=== PATIENT | female | born 1970 | race Caucasian/White ===

== ENCOUNTER → 2018-02-25 08:49 | Outpatient (CLI) | payer MEDICAID ==
[~2018-02-25] VITALS: Ht 165.1 cm; Wt 84.1 kg
--- NOTE | ~2018-02-25 | OP ---
PATIENT NAME: BRIE ZULUAGA MEDICAL RECORD: [id number] :70 LOCATION:D.CAT ADMISSION DATE: SURGEON: JAY JAY FERNANDEZ MD DATE OF OPERATION: 02/25/2018 DATE OF SERVICE: 02/25/2018 PROCEDURES: 1. PTCA stent RCA. 2. Left heart catheterization. 3. Selective coronary angiography. 4. Left ventriculogram. INDICATION: Angina and coronary artery disease. PROCEDURE IN DETAIL: After informed consent was obtained and after a detailed description of the risks, benefits as well as alternative therapies, the patient elected to proceed with angiogram and angioplasty. The right radial area was prepped and draped in normal sterile fashion. Right radial artery was cannulated via modified Seldinger technique with placement of 6-Nigerien sheath. All catheters exchanged through this sheath. FINDINGS: The left ventriculogram was performed in standard 30-degree BERG view, reveals good cardiac wall motion throughout all segments. Overall ejection fraction estimated 60%. SELECTIVE CORONARY ANGIOGRAPHY: 1. Left main showed no significant angiographic disease. 2. Left anterior descending has moderate irregularities, but no flow-limiting stenosis. 3. The left circumflex has moderate irregularities, but no flow-limiting stenosis. 4. The right coronary has previously placed stent in the proximal vessel. This is widely patent; however, there is greater than 80% stenosis with pressure damping at the ostium. PTCA STENT OF THE OSTIAL RCA: The ostium was addressed with a 4.0 x 12 mm [place]. Result was 0% residual stenosis. OVERALL IMPRESSION: Successful percutaneous transluminal coronary angioplasty stent of the right coronary artery ostium going from 80% initial stenosis to 0% residual. TRANSINT:[id number] Voice Confirmation ID: [id number] DOCUMENT ID: [id number] JAY JAY FERNANDEZ MD at 0924 CC: [id number] DICTATION DATE: 02/25/18 1410 ASSEMBLY DEPARTMENT SUPERVISOR: 02/25/18 1432 [facility] CLI 02/25/[address] [address]
--- NOTE | ~2018-02-25 | HEMODYNAMI ---
PATIENT:BRIE ZULUAGA MEDICAL RECORD: [id number] : 70 LOCATION:DMESSI ADMISSION DATE: 02/25/18 Generatedon:02/25/201813:55 Patient name: BRIE ZULUAGA Patient #: [id number] SSN: : 1970 Date of study: 02/25/2018 Page: Of Hemodynamic Procedure Report Patient Data Patient Demographics Procedure consent was obtained First Name: BRIE Gender: Female Last Name: ZAN : 1970 Patient #: [id number] Age: 47 year(s) Race: Unknown Additional ID: [id number] Contact details Address: [address] [place] [address] State: [place] City: [place] Zip code: [address] Past Medical History Allergies Allergen Reaction Date Comments Reported Other allergy 02/25/2018 Ibuprofen, sulfa Admission Admission Data Admission Date: 02/25/2018 Admission Time: 8:49 Admit Source: Other Procedure Procedure Types Cath Procedure Diagnostic Procedure LHC LH w/Coronaries Sedation Charges Moderate Sedation up to 15 minutes PCI Procedure Coronary Stent Coronary Stent Initial Procedure Description Procedure Date Procedure Date: 02/25/2018 Procedure Start Time: 13:39 Procedure End Time: 13:54 Procedure Staff Name Function Ramon Chaney MD Performing Physician Sidney Ceja RT Lower In Supervisor Mony Rodriguez RT Monitor Era Cordero RT Scrub Al Vogel RN Nurse Jorge L Gale RN Nurse Procedure Data Cath Procedure Fluoroscopy Diagnostic fluoroscopy Total fluoroscopy Time: 5.1 time: 5.1 min min Diagnostic fluoroscopy Total fluoroscopy dose: dose: 1053 mGy 1053 mGy Contrast Material Contrast Material Type Amount (ml) Isovue 300 117 Entry Location Entry Primary Successful Side Size Upsize Upsize Entry Closure Fisher ccessful Closure Location (Fr) 1 (Fr) 2 (Fr) Remarks Device Remarks Radial Right 6 Fr Mechanical tr artery Short Compression Estimated blood loss: 10 ml Diagnostic catheters Device Type Used For End Catheter Placement DIAGNOSTIC [place] 110cm 5 Procedure Fr catheter ([id number]) DIAGNOSTIC AR2 MOD 5 Fr Procedure catheter ([id number]) Procedure Complications No complications Procedure Medications Medication Administration Route Dosage Oxygen etCO2 Nasal cannula 2 l/min Heparin Flush Bag added to field 2 bags (1000units/500ml NS) 0.9% NaCl I.V. 100 ml/hr Radial Cocktail added to field 1 syringe (Verapomil 2mg/Nitro 400mcg/Heparin 1500units) Fentanyl I.V. 50 mcg Versed I.V. 1 mg Fentanyl I.V. 50 mcg Versed I.V. 1 mg Fentanyl I.V. 50 mcg Versed I.V. 1 mg Radial Cocktail I.A. 1 syringe (Verapomil 2mg/Nitro 400mcg/Heparin 1500units) Fentanyl I.V. 50 mcg Versed I.V. 1 mg Fentanyl I.V. 50 mcg Versed I.V. 1 mg Heparin Bolus I.V. 4000 units Fentanyl I.V. 50 mcg Versed I.V. 1 mg Plavix P.O. 75 mg Hemodynamics Rest Heart Rate: 84 (bpm) Snapshots Pre Cath Intra NCS Post Cath Vital Signs Time Heart Resp SPO2 etCO2 NIBP (mmHg) Rhythm Pain Sedation Rate (ipm) (%) (mmHg) Status Level (bpm) 13:12:00 84 16 100 0 132/88(118) NSR 0 (11) 10(A) , No pain 13:16:08 84 18 98 0 128/88(115) NSR 0 (11) 10(A) , No pain 13:20:16 86 17 98 0 128/85(107) NSR 0 (11) 10(A) , No pain 13:24:24 83 16 99 0 130/87(104) NSR 0 (11) 10(A) , No pain 13:28:31 87 16 99 0 134/87(109) NSR 0 (11) 10(A) , No pain 13:32:43 84 16 99 17.1 124/83(107) NSR 0 (11) 10(A) , No pain 13:36:51 80 17 98 30.5 125/79(98) NSR 0 (11) 10(A) , No pain 13:41:01 83 17 96 30.5 118/77(87) NSR 0 (11) 10(A) , No pain 13:45:09 83 17 92 27.5 107/82(92) NSR 0 (11) 10(A) , No pain 13:49:13 87 17 92 33.5 106/69(85) NSR 0 (11) 10(A) , No pain 13:53:17 90 16 94 36.4 113/71(83) NSR 0 (11) 10(A) , No pain Medications Time Medication Route Dose Verified Delivered Reason Not es Effectiveness by by 13:35:34 Fentanyl I.V. 50 mcg Ramon Jorge L for sedation Ritu Gale RN 13:35:41 Versed I.V. 1 mg Ramon Jorge L for sedation Ritu Gale RN 13:36:06 Oxygen etCO2 2 l/min Ramon Coats Per physician Nasal Ritu Gale RN cannula 13:36:13 Heparin Flush added 2 bags Ramon Mccollumy used for Bag to Ritu Gale RN procedure (1000units/500ml field NS) 13:36:22 0.9% NaCl I.V. 100 Ramon Jorge L Per physician ml/hr Ritu Gale RN 13:36:28 Radial Cocktail added 1 Ramon Jorge L used for (Verapomil to syringe Ritu Gale RN procedure 2mg/Nitro field 400mcg/Heparin 1500units) 13:38:08 Fentanyl I.V. 50 mcg Ramon Jorge L for sedation Ritu Gale RN 13:38:11 Versed I.V. 1 mg Ramon Jorge L for sedation Ritu Gale RN 13:38:26 Radial Cocktail I.A. 1 Ramon Ramon for (Verapomil syringe Ritu Chaney MD vasodilation 2mg/Nitro 400mcg/Heparin 1500units) 13:40:33 Fentanyl I.V. 50 mcg Ramon Jorge L for sedation Ritu Gale RN 13:40:37 Versed I.V. 1 mg Ramon Jorge L for sedation Ritu Gale RN 13:43:51 Fentanyl I.V. 50 mcg Ramon Jorge L for sedation Ritu Gale RN 13:43:55 Versed I.V. 1 mg Ramon Jorge L for sedation Ritu Gale RN 13:46:49 Fentanyl I.V. 50 mcg Ramon Jorge L for sedation Ritu Gale RN 13:46:52 Versed I.V. 1 mg Ramon Jorge L for sedation Ritu Gale RN 13:47:03 Heparin Bolus I.V. 4000 Ramon Coats for units Ritu Gale RN anticoagulation 13:51:41 Fentanyl I.V. 50 mcg Ramon Coats for sedation Ritu Gale RN 13:51:45 Versed I.V. 1 mg Ramon Coats for sedation Ritu Gale RN 13:54:16 Plavix P.O. 75 mg Ramon Coats for Ritu Gale RN antiplatelet therapy Procedure Log Time Note 12:50:13 Sidney Fisherit RT(R) sent for patient. Start room use. 12:55:16 Admit Source: Other 12:56:07 ACC Patient presents with Stable Angina CCS Anginal Class 2--Slight limitation of ordinary activity. 12:56:10 Diagnostic Cath status Elective 12:56:14 Time tracking: Regular hours (M-F 7:00 - 5:00) 12:56:19 Plan of Care:Hemodynamics will remain stable., Cardiac rhythm will remain stable., Comfort level will be maintained., Respiratory function will remain adequate., Patient/ family verbilizes understanding of procedure., Procedure tolerated without complication., Recovers from procedure without complications.. 13:04:22 Patient received from Pre/Post Procedure Room to CCL 2 Alert and oriented. Tansferred to table in Supine position. 13:04:23 Warm blankets applied, and juan pablo hugger turned on for patient comfort. 13:04:24 Correct patient and procedure confirmed by team. 13:04:25 Signed procedure consent form obtained from patient. 13:04:26 ECG and BP/O2 sat monitors applied to patient. 13:10:59 Vital chart was started 13:16:07 Baseline sample Acquired. 13:16:12 Rhythm: sinus rhythm 13:16:14 Full Disclosure recording started 13:16:18 H&P Date Dictated: 02/25/2018 Emergent; H&P N/A. 13:17:25 Pre-procedure instructions explained to patient. 13:17:27 Family in waiting room. 13:17:28 Patient NPO since Midnight. 13:18:12 Patient allergic to Other allergyIbuprofen, sulfa 13:18:15 Is the patient allergic to Iodine/contrast media? No. 13:18:18 Was the patient premedicated? Yes 13:18:20 Is patient on blood thinner?Yes 13:18:23 ACC The patient was administered the following blood thiners within the last 24 hours: ACCPlavix 13:18:25 Patient diabetic? Yes. 13:18:27 If diabetic: On Metformin? No 13:18:33 Patient not . Patient has had hysterectomy. 13:18:38 Snore? Yes 13:18:40 Sleep apnea? No 13:18:47 Patient pain scale 0/10 ?. 13:18:58 IV patent on arrival in right forearm with 0.9% NaCl at [facility]. 13:19:04 Lab results completed and on chart. 13:19:08 Right Radial & Right Groin area was prepped with chlora-prep and draped in sterile fashion 13:19:09 Alarms reviewed by R. N. 13:19:09 Sharps counted by scrub and verified by R.N. 13:19:10 Physician paged 13:31:16 Zero performed for pressure channel P1 13:31:23 Zero performed for pressure channel P1 13:35:21 --------ALL STOP TIME OUT------ 13:35:22 Final Timeout: patient, procedure, and site verified with staff and physician. All members of the team are in agreement. 13:35:25 Right Radial & Right Groin site verified by team. 13:35:34 Fentanyl 50 mcg I.V. was administered by Jorge L Gale RN; for sedation; 13:35:34 Physical assessment completed. ASA score P 2 - A patient with mild systemic disease as per Ramon Chaney MD. 13:35:38 Sedation plan: IV Moderate Sedation Medication:Versed, Fentanyl 13:35:41 Versed 1 mg I.V. was administered by Jorge L Gale RN; for sedation; 13:35:47 Use device set Radial Dx or PCI 13:35:49 ACIST Syringe (75120) opened to sterile field. 13:35:50 Medline Cath Pack ([id number]) opened to sterile field. 13:35:50 Bag Decanter (2002) opened to sterile field. 13:35:50 DIAGNOSTIC WIRE .035 260cm J wire (321583) opened to sterile field. 13:35:51 ACIST Hand Control (29902) opened to sterile field. 13:35:51 ACIST Manifold (20302) opened to sterile field. 13:35:52 Tegaderm 4 x 4 (1626W) opened to sterile field. 13:35:53 MBrace Wrist Support ([id number]) opened to sterile field. 13:35:56 NEEDLE Cook 21G 4cm Radial (K38327) opened to sterile field. 13:35:59 SHEATH 6Fr Prelude Radial ([id number]) opened to sterile field. 13:36:06 Oxygen 2 l/min etCO2 Nasal cannula was administered by Jorge L Gale RN; Per physician; 13:36:13 Heparin Flush Bag (1000units/500ml NS) 2 bags added to field was administered by Jorge L Gale RN; used for procedure; 13:36:22 0.9% NaCl 100 ml/hr I.V. was administered by Jorge L Gale RN; Per physician; 13:36:28 Radial Cocktail (Verapomil 2mg/Nitro 400mcg/Heparin 1500units) 1 syringe added to field was administered by Jorge L Gale RN; used for procedure; 13:36:40 Procedure started. 13:38:08 Fentanyl 50 mcg I.V. was administered by Jorge L Gale RN; for sedation; 13:38:11 Versed 1 mg I.V. was administered by Jorge L Gale RN; for sedation; 13:38:26 Radial Cocktail (Verapomil 2mg/Nitro 400mcg/Heparin 1500units) 1 syringe I.A. was administered by Ramon Chaney MD; for vasodilation; 13:39:32 Local anesthetic to right radial artery with Lidocaine 2% by Ramon Chaney MD.INITIAL ACCESS ONLY 13:39:52 A 6 Fr Short sheath was inserted into the Right Radial artery 13:40:33 Fentanyl 50 mcg I.V. was administered by Jorge L Gale RN; for sedation; 13:40:37 Versed 1 mg I.V. was administered by Jorge L Gale RN; for sedation; 13:40:58 A DIAGNOSTIC [place] 110cm 5 Fr catheter ([id number]) was advanced over the wire and used for Procedure. 13:41:01 EF : 55 % 13:42:10 LCA angiography performed. 13:43:05 Catheter removed. 13:43:11 A DIAGNOSTIC AR2 MOD 5 Fr catheter ([id number]) was advanced over the wire and used for Procedure. 13:43:51 Fentanyl 50 mcg I.V. was administered by Jorge L Gale RN; for sedation; 13:43:55 Versed 1 mg I.V. was administered by Jorge L Gale RN; for sedation; 13:44:09 RCA angiography performed. 13:44:48 Catheter removed. 13:44:49 Proceeding to intervention. 13:45:16 CHOICE PT Extra Support 182cm wire ([id number]) opened to sterile field. 13:45:17 INFLATOR Merit BasixCompak (NR3934) opened to sterile field. 13:45:18 GUIDE 6FR AR 2.0 SH catheter ([id number]) opened to sterile field. 13:45:33 6 Fr AR2 guide catheter was inserted over the wire 13:46:49 Fentanyl 50 mcg I.V. was administered by Jorge L Gale RN; for sedation; 13:46:52 Versed 1 mg I.V. was administered by Jorge L Gale RN; for sedation; 13:47:03 Heparin Bolus 4000 units I.V. was administered by Jorge L Gale RN; for anticoagulation; 13:47:21 choice pt wire advanced. 13:47:33 Wire advanced across lesion. 13:49:14 Place stent Inflation Number: 1 A FENG RX 4.0 x 12 stent ([id number]) was prepped and advanced across the Prox RCA. The stent was deployed at 17 CHANELL for 0:11 (min:sec). 13:49:38 Inflation number: 2 The stent balloon was then re-inflated across the Prox RCA to 0 CHANELL for 0:00 (min:sec). 13:49:51 Inflation number: 3 The stent balloon was then re-inflated across the Prox RCA to 13 CHANELL for 0:00 (min:sec). 13:51:41 Fentanyl 50 mcg I.V. was administered by Jorge L Gale RN; for sedation; 13:51:45 Versed 1 mg I.V. was administered by Jorge L Gale RN; for sedation; 13:52:00 Wire removed. 13:52:00 Guide catheter removed. 13:52:17 Sheath removed intact; hemostasis achieved with Mechanical Compression to the Right Radial artery. 13:52:20 Procedure ended.(Physican Out) 13:52:34 Fluoroscopy time 05.10 minutes. 13:52:41 Flurop Dose total: 1053 13:52:41 Fluoroscopy dose: 1053 mGy 13:52:45 Contrast amount:Isovue 300 117ml. 13:52:47 Sharps counted by scrub and verified by R.N. 13:52:50 TR band inflated with 10cc of air. 13:52:51 Insertion/operative site no bleeding no hematoma. 13:52:54 Post Procedure Pulses reassessed and unchanged 13:53:00 Post-procedure physical assessment completed. ASA score P 2 - A patient with mild systemic disease as per Ramon Chaney MD. 13:53:04 Post procedure rhythm: unchanged. 13:53:19 Estimated blood loss: 10 ml 13:53:20 Post procedure instruction explained to patient.Patient verbalizes understanding. 13:53:43 Procedure type changed to Cath procedure, Diagnostic procedure, LHC, LHC w/Coronaries, Sedation Charges, Moderate Sedation up to 15 minutes, PCI procedure, Coronary Stent, Coronary Stent Initial 13:53:44 Procedure and supply charges have been captured, reviewed, submitted and are correct. 13:54:16 Plavix 75 mg P.O. was administered by Jorge L Gale RN; for antiplatelet therapy; 13:54:33 Procedure Complication : No complications 13:54:36 Vital chart was stopped 13:54:37 See physician's report for complete and final results. 13:54:38 Report given to Pre/Post Procedure Room. 13:54:41 Patient transfered to Pre/Post Procedure Room with Stretcher. 13:54:43 Procedure ended. 13:54:43 Full Disclosure recording stopped 13:54:50 End room use (Document Last) Intervention Summary Intervention Notes Time ActionType Lesion and Equipment Used Action# Pressure Duration Attributes 13:49:14 Place stent Prox RCA FENG RX 4.0 x 1 17 00:11 12 stent ([id number]) 13:49:38 Reinflate Prox RCA FENG RX 4.0 x 2 0 00:00 stent 12 stent balloon ([id number]) 13:49:51 Reinflate Prox RCA FENG RX 4.0 x 3 13 00:00 stent 12 stent balloon ([id number]) Device Usage Item Name Manufacture Quantity Catalog Number Hospital Part Current Minimal Lot# / Charge Number Stock Stock Serial# Code ACIST Syringe Acist 1 28838 075201 740403 697524 20 (96542) Medical Systems Inc Medline Cath Cardinal 1 [id number] 328477 93510 677664 5 Pack Health ([id number]) Bag Decanter Microtek 1 2001S 121272 03656 350919 5 (2001S) Medical Inc. DIAGNOSTIC WIRE St Nathaniel 1 596912 767235 401507 900945 30 .035 260cm J wire (916507) ACIST Hand Acist 1 10356 607846 614631 149186 5 Control (04232) [employer] Inc ACIST Manifold Acist 1 80723 699554 604016 899109 5 (04527) Medical Systems Inc Tegaderm 4 x 4 3M 1 1626W 957342 490391 616169 5 (1626W) MBrace Wrist Advanced 1 140-0250-00 445844 00417 300652 5 Support Vascular ([id number]) Dynamics NEEDLE Cook 21G Cook Medical 1 F91189 980242 081192 819104 5 4cm Radial (C20864) SHEATH 6Fr Merit 1 [id number] 339942 472799 521182 5 Prelude Radial Medical ([id number]) DIAGNOSTIC Terumo 1 40-1429 444050 539423 656333 5 [place] 110cm 5 Fr catheter (740158) DIAGNOSTIC AR2 Cardinal 1 [id number] 470323 406585 324155 20 MOD 5 Fr Health catheter (673602P) CHOICE PT Extra Alpha 1 [id number] 013630 533732 230688 5 Support 182cm Scientific wire (5813980D3) INFLATOR Merit Merit 1 TU5804 664640 904135 365000 15 The ANT Works Medical (ZJ2962) GUIDE 6FR AR Medtronic 1 [id number] 583569 85265 379164 1 2.0 SH catheter ([id number]) FENG RX 4.0 x Medtronic 1 [id number] 747980 4053818 464739 5 [id number] 12 stent ([id number]) Signature Audit [place] Stage Time Signature Unsigned Intra-Procedure 02/25/2018 Mony Rodriguez 1:55:47 PM RT(R) Signatures Monitor : Mony Rodriguez Signature : RT Date : Time : [address] [place] [address]
[~2018-02-25 08:49] MED LIST: BAYER CHEWABLE81 MG PO; CYCLOBENZAPRINE10 MG PO; LIPITOR20 MG PO; NEURONTIN 300300 MG PO; OXYCONTIN10 MG PO; PLAVIX75 MG PO; ZYRTEC10 MG PO
[2018-02-25 10:05] VITALS: BP 118/74; Ht 165.1 cm; Wt 84.1 kg
[2018-02-25 10:20] LABS: BASOPHILS 0.2 % (0-2); EOSINOPHILS 2.3 % (0-7); HEMATOCRIT 40.7 % (36.0-48.0); IMMATURE GRANULOCYTES 0.2 % (0-5); LYMPHOCYTES 32.9 % (15-50); MCH 29.4 pg (26.0-34.0); MCHC 34.4 g/dL (31.0-37.0); MCV 85.5 fL (80.0-100.0); MEAN PLATELET VOLUME 10.1 fL (7.4-10.4); MONOCYTES 5.4 % (2-11); PLATELET COUNT 206 10x3/uL (130-400); RBC 4.76 10x6/uL (4.00-5.40); WBC 9.2 10x3/uL (4.8-10.8)
[2018-02-25 10:28] LABS: CALC OSMOLALITY 275 mosm/kg (275-300); CARBON DIOXIDE 28.7 mmol/L (21.0-32.0); CHLORIDE - SERUM 101 mmol/L (98-107); CREATININE - SERUM 0.7 mg/dL (0.6-1.3); GLUCOSE 98 mg/dL (74-106); POTASSIUM - SERUM 4.4 mmol/L (3.5-5.1); SODIUM 138 mmol/L (136-145); UREA NITROGEN 13 mg/dL (7-18); eGFR NON AFRICAN AMERICAN > 90 mL/min (90-120)
== END | disposition home or self-care (01) ==
LOC: D.CATH 08:49
PROVIDERS: Internal Medicine Interventional Cardiology
DX: I25.119 Atherosclerotic heart disease of native coronary artery with unspecified angina pectoris (principal); Z01.812 Encounter for preprocedural laboratory examination